=== PATIENT | female | born 1975 ===

== ENCOUNTER 2016-12-01 16:22 | Emergency (ER) | payer MEDICAID ==
--- NOTE | 2016-12-01 17:44 | C.PDOC ---
History Of Present Illness 41 year old female presents to Emergency Department for evaluation of periumbilical pain for the past year, but worse over the last few days. Patient states is "feels like a ball" in that region. Notes taking Tylenol for pain without relief. She states she has had "bouts of pain for months". She was seen by doctor in [place] and told to see specialist but did not follow up . Denies weight loss, constipation, diarrhea, blood in stool, dysuria, hematuria, nausea , vomiting, or fever. Time Seen by Provider: 12/01/16 17:22 Chief Complaint (Nursing): Abdominal Pain History Per: Patient History/Exam Limitations: no limitations Onset/Duration Of Symptoms: Days Current Symptoms Are (Timing): Still Present Location Of Pain/Discomfort: Periumbilical Radiation Of Pain To:: None Quality Of Discomfort: "Pain" Associated Symptoms: denies: Loss Of Appetite, Back Pain, Chest Pain, Constipation, Urinary Symptoms Exacerbating Factors: None Alleviating Factors: None Recent travel outside of the [place]: No Additional History Per: Patient Past Medical History Reviewed: Historical Data, Nursing Documentation, Vital Signs Vital Signs: Last Vital Signs Temp 98.1 F 12/01/16 18:00 Pulse 74 12/01/16 18:00 Resp 18 12/01/16 18:00 BP 120/80 12/01/16 18:00 Pulse Ox 98 12/01/16 18:09 - Medical History PMH: Anemia Family History: States: Unknown Family Hx - Social History Hx Tobacco Use: No Hx Alcohol Use: No Hx Substance Use: No - Immunization History Hx Tetanus Toxoid Vaccination: No Hx Influenza Vaccination: No Hx Pneumococcal Vaccination: No Review Of Systems Except As Marked, All Systems Reviewed And Found Negative. Constitutional: Negative for: Fever, Chills Cardiovascular: Negative for: Chest Pain Respiratory: Negative for: Shortness of Breath Gastrointestinal: Positive for: Abdominal Pain. Negative for: Nausea, Vomiting , Diarrhea, Constipation, Hematochezia Genitourinary: Negative for: Dysuria, Frequency, Hematuria, Vaginal Discharge Musculoskeletal: Negative for: Back Pain Neurological: Negative for: Headache, Dizziness Physical Exam - Physical Exam Appears: Non-toxic, No Acute Distress Skin: Normal Color, Warm, Dry Head: Atraumatic, Normacephalic Eye(s): bilateral: Normal Inspection Oral Mucosa: Moist Neck: Normal ROM, Supple Chest: Symmetrical Cardiovascular: Rhythm Regular, No Murmur Respiratory: Normal Breath Sounds, No Rales, No Rhonchi, No Wheezing Gastrointestinal/Abdominal: Bowel Sounds (active), Soft, Tenderness, No Distention, No Guarding, No Rebound, Hernia (soft minimally tender reducible umbilical hernia) Back: Normal Inspection, No CVA Tenderness Extremity: Normal ROM, No Deformity Neurological/Psych: Oriented x3, Normal Speech Gait: Steady ED Course And Treatment O2 Sat by Pulse Oximetry: 98 (RA) Pulse Ox Interpretation: Normal Medical Decision Making Medical Decision Making: Patient with umbilical hernia, no acute distress. No signs of acute abdomen, no vomiting or other associated complaints. Vital signs stable. Discuss and educate patient on what umbilical hernia is and that she can follow up with general surgery for further evaluation. Patient given list of local general surgeons. Disposition Counseled Patient/Family Regarding: Diagnosis, Need For Followup - Disposition Referrals: Mohit Tony MD [Staff Provider] - Dustin Ledesma MD [Staff Provider] - Disposition: HOME/ ROUTINE Disposition Time: 17:43 Condition: STABLE Additional Instructions: Usted tiene bala hernia umbilical. [place] analgsicos segn sea necesario. Seguimiento con ciruga general para consultar. Lopez un seguimiento con aguilar mdico primario o clnica en 2-5 dewitt para bala evaluacin adicional. Regrese al departamento de emergencia en cualquier momento si los sntomas persisten o empeoran. Instructions: Umbilical Hernia (ED) Forms: [employer] (Uruguayan) Print Language: SIERRA LEONEAN - POA Present On Arrival: None - Clinical Impression Clinical Impression: Umbilical hernia - PA / CORONER TECHNICIAN / Resident Statement MD/DO has reviewed & agrees with the documentation as recorded. - Scribe Statement The provider has reviewed the documentation as recorded by the Ikeibchelle Jasso All medical record entries made by the Scribe were at my direction and personally dictated by me. I have reviewed the chart and agree that the record accurately reflects my personal performance of the history, physical exam, medical decision making, and the department course for this patient. I have also personally directed, reviewed, and agree with the discharge instructions and disposition.
[2016-12-01 18:01] VITALS: BP 120/80; PULSE 74; RESP 18; TEMP 98.1
[2016-12-01 18:04] VITALS: O2SAT 98
== END 2016-12-01 18:01 | disposition home or self-care (01) ==
LOC: C.ER 16:22
DX: K42.9 Umbilical hernia without obstruction or gangrene (principal)

== ENCOUNTER 2017-01-05 09:02 | Day surgery (SDC) | payer MEDICAID ==
[2016-12-26 10:12] VITALS: BMI 45.6
[2017-01-05] MEDS ORDERED: ceFAZolin IV 2 gm in Dextrose 2 GM/50 ML BAG IVPB ONE (09:36)
[2017-01-05] MEDS ORDERED: Midazolam 2 MG/2 ML VIAL ONE (10:27)
[2017-01-05] MEDS ORDERED: Propofol 10 mg/ml Inj (20 ML) ONE ×2 (10:28→11:27)
[2017-01-05] MEDS ORDERED: Lactated Ringer's 1,000 ML IV ONE ×3 (10:47→13:03)
[2017-01-05] MEDS ORDERED: Succinylcholine Chloride 20 mg/ml Syr (5 ml) IV ONE (10:57)
[2017-01-05] MEDS: Bupivacaine-Epi 0.25%-1:200,000 PF Inj ONE ×2 (10:59→11:27)
[2017-01-05] MEDS: Lidocaine 1% Inj (20ml) ONE ×2 (10:59→11:27)
[2017-01-05] MEDS: Bupivacaine HCl 0.25% PF (10 ml) Inj ONE ×4 (10:59→13:08)
[2017-01-05] MEDS ORDERED: Neostigmine Methylsulfate 3mg/3ml Syringe IV ONE (13:09)
[2017-01-05] MEDS ORDERED: HYDROmorphone 0.5 mg/0.5 ml ISec IVP PRN (13:33)
--- NOTE | 2017-01-05 13:38 | PCM.SURG1 ---
Surgeon's Initial Post Op Note - Surgeon's Notes Surgeon: Dr. Ledesma Precipitation Equipment Tender: Dr. Guzman PGY2, Lucy MCKEONA Type of Anesthesia: General Endo Pre-Operative Diagnosis: umbilical hernia Operative Findings: see dictation Post-Operative Diagnosis: umbilical hernia Operation Performed: robot-assisted laparoscopic incisional, supra-umbilical and umbilical hernia repair w/ mesh, lysis of adhesions Specimen/Specimens Removed: umbilical hernia sac and contents Estimated Blood Loss: EBL {In ML}: 10 Blood Products Given: N/A Drains Used: No Drains Post-Op Condition: Good Date of Surgery/Procedure: 01/05/17 Time of Surgery/Procedure: 10:50
[2017-01-05 16:19] VITALS: RESP 16
[2017-01-05 17:27] VITALS: BP 132/75; PULSE 91; TEMP 98.1; O2SAT 95
--- NOTE | 2017-01-06 07:24 | OP ---
PROCEDURE DATE: 01/05/2017 PREOPERATIVE DIAGNOSES: 1. Incisional umbilical hernia status post gastric bypass. 2. Morbid obesity. 3. Possible postoperative adhesion. POSTOPERATIVE DIAGNOSES: 1. Supraumbilical incisional hernia containing omentum. 2. Umbilical hernia containing preperitoneal fat. 3. Infraumbilical incisional hernia containing preperitoneal fat. 4. Morbid obesity. 5. Extensive postoperative adhesion. OPERATIONS DONE: 1. Robotic supraumbilical incisional hernia repair with a mesh incarcerated. 2. Robotic umbilical hernia repair with a mesh. 3. Robotic infraumbilical incisional hernia repair with a mesh, nonincarcerated. 4. Robotic lysis of adhesion. 5. Bilateral laparoscopic TAP block placement. SURGEON: Dustin Ledesma MD ASSISTANTS: STEFANO Ramos and Dari Guzman, PGY-2 resident. TYPE OF ANESTHESIA: General endotracheal tube anesthesia. ESTIMATED BLOOD LOSS: EBL is around 10 mL. DRAINS: None. PATHOLOGY: 1. Supraumbilical incisional hernial sac and content were sent for the pathology. 2. Umbilical hernial sac and content were sent for the pathology. 3. Infraumbilical incisional hernia sac and content were sent for the pathology. COMPLICATIONS: None. DESCRIPTION OF PROCEDURE: On intraoperative step, the patient had supraumbilical incisional hernia containing incarcerated omentum, and the patient also had umbilical hernia containing preperitoneal fat and the patient also had another infraumbilical incisional hernia containing preperitoneal fat, and the patient had extensive postoperative adhesion as well as incarcerated omentum. On intraoperative steps, this is a 41-year-old female who was diagnosed with incisional umbilical hernia, and the patient was brought to the OR after consenting robotic umbilical incisional hernia repair with a mesh and possible open, placed supine on the operating table. After induction of the anesthesia, the abdomen was prepped and draped in the usual sterile fashion. Under laparoscopic guidance, using the Visi-Port, peritoneal cavity was entered, pneumo was created and another two 8 mm robotic ports were placed. The 5-mm ports were changed to 8 mm ports. Robot was brought in. The camera arm as well as arm #1 and arm #2 were docked, and first lysis of adhesion of the incarcerated omentum was done and other peritoneal lysis of adhesion was done, and after that total three defects were identified, one supraumbilical incisional hernia, umbilical hernia as well as the infraumbilical incisional hernia and after that all the hernial defects were repaired with #1 Prolene V-Loc suture in a double layer and after that the large 18 x 12 cm mesh was implanted. After proper implantation of the mesh with a tacker, the bilateral TAP block was given, first on the right side. The 15:15 mL of Marcaine was injected in the upper and lower TAP block site, and after proper TAP block, pneumo was deflated. All the port was taken out under vision. All the specimen was taken out before deflating pneumo, and it was sent over the table for pathology. There was proper hemostasis in each and every part of the procedure. All the port was closed in two layers, subcutaneously with 2-0 Vicryl, skin with 4-0 Monocryl, and dry sterile dressing was applied. The patient was extubated in the OR and sent to the Postanesthesia Care Unit in stable condition. Dustin Ledesma MD
== END 2017-01-05 17:26 | disposition home or self-care (01) ==
LOC: C.SDS 09:02
PROVIDERS: ATTEND Surgery Surgical Critical Care
DX: K42.9 Umbilical hernia without obstruction or gangrene (principal); E66.01 Morbid (severe) obesity due to excess calories
CPT/HCPCS: 49585; 49654; 82948; 88302; J0690; J1100; J1170; J2250; J2405; J2704; J2710; J3010; J7120

== ENCOUNTER 2017-01-06 18:36 | Emergency (ER) | payer MEDICAID ==
[2017-01-06 18:37] VITALS: BMI 45.6
[2017-01-06 20:15] LABS: BASO % 0.3 % (0.0-2.0); EOS % 0.7 % (0.0-4.0); LYMPH # 1.9 K/uL (1.0-4.3); LYMPH % 27.8 % (20.0-40.0); MEAN CELL VOLUME 77.3 fL (81.0-99.0); MEAN CORPUSCULAR HEMOGLOBIN 24.5 pg (27.0-31.0); MEAN CORPUSCULAR HGB CONC 31.7 g/dL (33.0-37.0); MEAN PLATELET VOLUME 7.7 fL (7.2-11.7); MONO # 0.6 K/uL (0.0-0.8); MONO % 9.3 % (0.0-10.0); RED CELL DISTRIBUTION WIDTH 15.7 % (11.5-14.5); WHITE BLOOD COUNT 6.7 K/uL (4.8-10.8)
[2017-01-06 20:27] LABS: RBC URINE 72 /hpf (0-3); URINE BACTERIA MOD (<OCC); URINE BILIRUBIN NEGATIVE (NEGATIVE); URINE BLOOD 3+ (NEGATIVE); URINE COLOR Red (YELLOW); URINE GLUCOSE (UA) NORMAL (Normal); URINE KETONE NEGATIVE (NEGATIVE); URINE LEUKOCYTE ESTERASE TRACE Leu/uL (Negative); URINE PROTEIN 2+ mg/dL (NEGATIVE); URINE UROBILINOGEN NORMAL mg/dL (0.2-1.0); WBC URINE 102 /hpf (0-5)
[2017-01-06 20:32] LABS: ALKALINE PHOSPHATASE 63 U/L (38-126); ALT/SGPT 43 U/L (9-52); AST/SGOT 19 U/L (14-36); BILIRUBIN,TOTAL 0.6 mg/dL (0.2-1.3); BLOOD UREA NITROGEN 12 mg/dL (7-17); CALCIUM 8.7 mg/dl (8.6-10.4); CARBON DIOXIDE 28 mmol/L (22-30); CHLORIDE 100 mmol/L (98-107); GFR AFRICAN-AMERICAN > 60; GLUCOSE,RANDOM 129 mg/dL (65-105); POTASSIUM 3.6 mmol/L (3.6-5.2); SODIUM 138 mmol/L (132-148); TOTAL PROTEIN 8.2 g/dL (6.3-8.3)
--- NOTE | 2017-01-06 21:33 | C.PDOC ---
History Of Present Illness 41 year old female presents to the ED c/o abdominal pain and mild nausea. Patient reports she had hernia surgery yesterday and has not contacted her surgeon for the complaints she has today. Patient denies vomit, fever, bloody stool, dysuria, hematuria, back pain, dizziness. Chief Complaint (Nursing): Abdominal Pain History Per: Patient History/Exam Limitations: no limitations Onset/Duration Of Symptoms: Hrs Current Symptoms Are (Timing): Still Present Context: Other (Recent surgery) Severity: Mild Location Of Pain/Discomfort: Diffuse Radiation Of Pain To:: None Quality Of Discomfort: "Pain" Associated Symptoms: denies: Fever, Nausea, Vomiting, Diarrhea, Urinary Symptoms Alleviating Factors: None Recent travel outside of the [place]: No Additional History Per: Patient Abnormal Vaginal Bleeding: No Past Medical History Reviewed: Historical Data, Nursing Documentation, Vital Signs Vital Signs: Last Vital Signs Temp 98.5 F 01/06/17 21:35 Pulse 60 01/06/17 21:35 Resp 18 01/06/17 21:35 BP 92/64 L 01/06/17 21:35 Pulse Ox 98 01/06/17 21:38 - Medical History PMH: Anemia Denies: Chronic Kidney Disease Surgical History: No Surg Hx Family History: States: Unknown Family Hx - Social History Hx Tobacco Use: No Hx Alcohol Use: No Hx Substance Use: No - Immunization History Hx Tetanus Toxoid Vaccination: No Hx Influenza Vaccination: No Hx Pneumococcal Vaccination: No Review Of Systems Constitutional: Negative for: Fever, Chills Cardiovascular: Negative for: Chest Pain, Palpitations Respiratory: Negative for: Cough, Shortness of Breath Gastrointestinal: Positive for: Abdominal Pain. Negative for: Nausea, Vomiting Musculoskeletal: Negative for: Back Pain Skin: Negative for: Rash Neurological: Negative for: Weakness, Numbness Physical Exam - Physical Exam Appears: Non-toxic, No Acute Distress Skin: Normal Color, Warm, Dry Head: Atraumatic, Normacephalic Nose: No Discharge, No Deformity Oral Mucosa: Moist Neck: Normal ROM, Supple Chest: Symmetrical Cardiovascular: Rhythm Regular, No Murmur Respiratory: Normal Breath Sounds, No Rales, No Rhonchi, No Wheezing Gastrointestinal/Abdominal: Bowel Sounds (Active ), Other (Binder still present STP hernia Sx) Back: No CVA Tenderness Extremity: Normal ROM, No Calf Tenderness, No Deformity, No Swelling Neurological/Psych: Oriented x3, Normal Speech, Normal Cognition Gait: Steady ED Course And Treatment - Laboratory Results Result Diagrams: 01/06/17 20:12 01/06/17 20:12 O2 Sat by Pulse Oximetry: 98 (On RA) Pulse Ox Interpretation: Normal Medical Decision Making Medical Decision Making: Plan : * Blood work ordered * UA ordered * Blood culture collected * Urine culture collected Disposition - Disposition Referrals: Dustin Ledesma MD [Staff Provider] - Disposition: HOME/ ROUTINE Disposition Time: 20:40 Condition: GOOD Additional Instructions: Thank you for letting us take care of you today. The emergency medical care you received today was directed at your acute symptoms. If you were prescribed any medication, please fill it and take as directed. It may take several days for your symptoms to resolve. Return to the Emergency Department if your symptoms worsen, do not improve, or if you have any other problems. Please contact your doctor or call one of the physicians/clinics you have been referred to that are listed on the Patient Visit Information form that is included in your discharge packet. Bring any paperwork you were given at discharge with you along with any medications you are taking to your follow up visit. Our treatment cannot replace ongoing medical care by a primary care provider (PCP) outside of the emergency department. Thank you for allowing the [facility] team to be part of your care today. Follow up with your surgeon as scheduled for re-evaluation and further management. Hilario por dejarnos atenderlo hoy. La atencin mdica de emergencia que recibi hoy estaba dirigida a tatiana sntomas agudos. Si le prescribieron algn medicamento, llnelo y tome segn las indicaciones. Tatiana sntomas pueden tardar varios dewitt en resolverse. Regrese al Departamento de Emergencia si tatiana s ntomas empeoran, no mejoran o si tiene algn otro problema. Comunquese con aguilar mdico o llame a marcel de los mdicos / clnicas a los que leon sido referido que figura en el formulario de Informacin de visita del paciente que se incluye en aguilar paquete de elizabeth. Traiga todos los documentos que recibi al momento del elizabeth junto con los medicamentos que est tomando en aguilar visita de seguimiento. Nuestro tratamiento no puede reemplazar la atencin mdica en curso por parte de un proveedor de atencin primaria (PCP) fuera del departamento de emergencias. Hilario por permitir que el equipo de [facility] sea parte de aguilar cuidado hoy. Lopez un seguimiento con aguilar cirujano segn lo programado para bala reevaluacin y administracin adicional. Prescriptions: Ondansetron ODT [Zofran ODT] 8 mg PO Q6 PRN #20 odt PRN Reason: Nausea/Vomiting Instructions: Abdominal Pain (ED) Forms: Gen Discharge Inst Icelandic Print Language: GERMAN - Clinical Impression Clinical Impression: Abdominal wall pain - Scribe Statement The provider has reviewed the documentation as recorded by the Scribe Tony Jerry All medical record entries made by the Scribe were at my direction and personally dictated by me. I have reviewed the chart and agree that the record accurately reflects my personal performance of the history, physical exam, medical decision making, and the department course for this patient. I have also personally directed, reviewed, and agree with the discharge instructions and disposition.
[2017-01-06 21:35] VITALS: BP 92/64; PULSE 60; RESP 18; TEMP 98.5
[2017-01-06 21:37] VITALS: O2SAT 98
== END 2017-01-06 21:59 | disposition home or self-care (01) ==
LOC: C.ER 18:36
DX: R10.9 Unspecified abdominal pain (principal)

== ENCOUNTER 2017-08-20 12:54 | Emergency (ER) | payer MEDICAID ==
[2017-08-20 12:54] VITALS: BMI 45.6
[2017-08-20] MEDS ORDERED: Sodium Chloride 0.9% 1,000 ML IV ONE (14:35)
[2017-08-20 14:44] LABS: BASO # 0.1 K/uL (0.0-0.2); BASO % 1.3 % (0.0-2.0); EOS # 0.2 K/uL (0.0-0.7); EOS % 4.2 % (0.0-4.0); HEMOGLOBIN 11.1 g/dL (11.0-16.0); LYMPH # 1.8 K/uL (1.0-4.3); LYMPH % 37.2 % (20.0-40.0); MEAN CELL VOLUME 74.9 fL (81.0-99.0); MEAN CORPUSCULAR HEMOGLOBIN 23.8 pg (27.0-31.0); MEAN CORPUSCULAR HGB CONC 31.7 g/dL (33.0-37.0); MEAN PLATELET VOLUME 8.3 fL (7.2-11.7); MONO # 0.5 K/uL (0.0-0.8); MONO % 10.8 % (0.0-10.0); NEUT # 2.2 K/uL (1.8-7.0); NEUT % 46.5 % (50.0-75.0); NRBC % 0.1 % (0.0-2.0); RBC 4.68 Mil/uL (3.80-5.20); RED CELL DISTRIBUTION WIDTH 16.4 % (11.5-14.5); WHITE BLOOD COUNT 4.8 K/uL (4.8-10.8)
[2017-08-20] MEDS ORDERED: Iodixanol 320 MG/ML 100 ML BOTTLE IV ONE (14:53)
[2017-08-20 14:58] LABS: ALB/GLOB RATIO 1.3 (1.0-2.1); ALBUMIN 4.4 g/dL (3.5-5.0); ALT/SGPT 24 U/L (9-52); AST/SGOT 16 U/L (14-36); BLOOD UREA NITROGEN 15 mg/dL (7-17); CALCIUM 9.5 mg/dl (8.6-10.4); GFR AFRICAN-AMERICAN > 60; GFR NON-AFRICAN AMERICAN > 60
[2017-08-20 15:02] LABS: HCG,QUALITATIVE URINE NEGATIVE (NEGATIVE)
[2017-08-20] MEDS ORDERED: Sodium Chloride 0.9% 1,000 ML ONE ×2 (15:14→15:18)
[2017-08-20 15:28] LABS: SQUAMOUS EPITHIAL 3 /hpf (0-5); URINE BACTERIA RARE (<OCC); URINE BILIRUBIN NEGATIVE (NEGATIVE); URINE BLOOD NEGATIVE (NEGATIVE); URINE CLARITY Hazy (Clear); URINE COLOR Yellow (YELLOW); URINE GLUCOSE (UA) NORMAL (Normal); URINE LEUKOCYTE ESTERASE 2+ Leu/uL (Negative); URINE PROTEIN NEGATIVE (NEGATIVE); URINE UROBILINOGEN NORMAL mg/dL (0.2-1.0)
[2017-08-20] MEDS ORDERED: cefTRIAXone IV 1 gm in Dextros 50 ML IVPB STA (16:02)
--- NOTE | 2017-08-20 16:10 | C.PDOC ---
History Of Present Illness 42-year-old female, presents to the emergency department with complaints of right lower quadrant pain, ongoing x2 days, non-radiating, worse with ambulation. Patient notes associated nausea. Denies fever, chills, sore throat, CP, SOB, vomiting, diarrhea, back pain, UTI sx, or any other associated symptoms.Ambulate to Ed for evaluation, not in any apparent distress. Time Seen by Provider: 08/20/17 14:14 Chief Complaint (Nursing): Abdominal Pain History Per: Patient History/Exam Limitations: no limitations Current Symptoms Are (Timing): Still Present Severity: Moderate Location Of Pain/Discomfort: RLQ Past Medical History Reviewed: Historical Data, Nursing Documentation, Vital Signs Vital Signs: Last Vital Signs Temp 98.3 F 08/20/17 13:07 Pulse 97 H 08/20/17 13:07 Resp 18 08/20/17 13:07 BP 126/82 08/20/17 13:07 Pulse Ox 97 08/20/17 16:20 - Medical History PMH: Anemia Denies: Chronic Kidney Disease Family History: States: No Known Family Hx - Social History Hx Tobacco Use: No Hx Alcohol Use: No Hx Substance Use: No - Immunization History Hx Tetanus Toxoid Vaccination: No Hx Influenza Vaccination: No Hx Pneumococcal Vaccination: No Review Of Systems Constitutional: Negative for: Fever, Chills Cardiovascular: Negative for: Chest Pain, Palpitations Respiratory: Negative for: Shortness of Breath Gastrointestinal: Positive for: Nausea, Abdominal Pain. Negative for: Vomiting , Diarrhea, Constipation Musculoskeletal: Negative for: Back Pain Skin: Negative for: Rash Neurological: Negative for: Weakness Physical Exam - Physical Exam Appears: Well, Non-toxic, No Acute Distress Skin: Normal Color, Warm, Dry, No Rash Head: Normacephalic Eye(s): bilateral: PERRL Nose: No Flaring Oral Mucosa: Moist, No Drooling Lips: Normal Appearing Throat: No Erythema Neck: Normal ROM, Trachea Midline, Supple Chest: Symmetrical Cardiovascular: Rhythm Regular, No Murmur, No JVD Respiratory: No Decreased Breath Sounds, No Accessory Muscle Use, No Stridor, No Wheezing Gastrointestinal/Abdominal: Soft, Tenderness (RLQ, mild), No Guarding, No Rebound Back: No CVA Tenderness Extremity: Normal ROM, No Deformity, No Swelling Neurological/Psych: Oriented x3, Normal Speech ED Course And Treatment - Laboratory Results Result Diagrams: 08/20/17 14:37 08/20/17 14:37 Lab Interpretation: Normal Urine POC: Negative O2 Sat by Pulse Oximetry: 97 (RA) Pulse Ox Interpretation: Normal - CT Scan/US CT abd/pelvis Other Rad Studies (CT/US): Radiology Report Reviewed CT/US Interpretation: Creator : Eva Gipson. Dictator : Cowlman : Residential Aide : Nick Saldana MD. Approver2 : Report Date : 08/20/2017 16:08: 00. My Comment : . Date of service: 08/20/2017. PROCEDURE: CT Abdomen and Pelvis with Oral contrast. HISTORY: RLQ pain. COMPARISON: No prior comparison made with prior CT scan brain 12/26/2016. TECHNIQUE: Contiguous axial images of the abdomen and pelvis. . Coronal and Sagittal reformats generated. This CT exam was performed using one or more of the following dose reduction techniques: Automated exposure control, adjustment of the mA and/or kV according to patient size, and/or use of iterative reconstruction technique. Contrast dose: At 100 cc Visipaque 320 contrast material. Radiation dose: Total exam DLP = 1259.41 mGy-cm. FINDINGS: LOWER THORAX: Mild passive/ dependent type atelectasis both posterior lower lung zones. Heart size is borderline/mildly enlarged. No significant pericardial effusion. Tiny hiatal hernia. LIVER: Liver is enlarged measuring over 21 cm in CC dimension. No obvious hepatic mass collection or calcification. . Mild moderate fatty hepatic infiltration. Portal and splenic veins are opacified. GALLBLADDER AND BILE DUCTS: Gallbladder is physiologically distended. No evidence of intraluminal gallbladder calculi. PANCREAS: Unremarkable. No mass. No ductal dilatation. SPLEEN: Re- demonstrated is a small splenule adjacent to the medial aspect main body of the spleen. ADRENALS: No adrenal lesions. KIDNEYS AND URETERS: Unremarkable. No stone or hydronephrosis. Again noted is an exophytic cyst arising from the upper pole right kidney that measures approximately 3.3 x 3.2 cm. BLADDER: Grossly unremarkable. No evidence of intraluminal urinary bladder calculi. REPRODUCTIVE: The interval resolution previously suspected small right ovarian cyst. APPENDIX: Normal-appearing appendix of best seen on axial image number [id number]. No periappendiceal inflammatory changes. BOWEL: Postoperative changes of gastric bypass again noted. PERITONEUM: Unremarkable. No fluid collection. No free air. Previously noted ventral wall hernia has been repaired. Note made of some minor infiltration changes within the subcutaneous tissues left anterolateral lower abdominal wall. LYMPH NODES: Unremarkable. No enlarged lymph nodes. VASCULATURE: Unremarkable. No aortic aneurysm. BONES: No fracture or destructive lesion. OTHER FINDINGS: None. IMPRESSION: Hepatomegaly with fatty infiltration. Status post right ventral wall hernia repair. No evidence of acute appendicitis. Stable postoperative changes of the stomach. Re- demonstrated is a exophytic cyst upper pole right kidney. No evidence of nephrolithiasis. Resolution previously noted small right -sided adnexal cyst. Progress Note: Pt was OBS in ED for 3 hours and reports moderate improvement in sx. On re-eval, pt is afebrile, hemodynamicaly stable. NOn-toxic, tolerate Po well in ED. PuslEOx 97% RA. neck: Supple, (-) JVD. Lungs: CTA B/L, BS equal B /L. CVS: (+)S1S2, reg. Abd: benign, (-) guaridng, (-) rebound. back: (-) CVA tenderness. Blood work review, no acute leukocytosis or left shift. UA (+) WBC. CT abd/pelvis review (-) acute pathology noted. Pt has clinical findings c/w UTI. Pt advised. ref. to f/u with PMD, [employer] in 2-3 days for re-eval. return to ED f any worsening or new changes. Disposition Counseled Patient/Family Regarding: Studies Performed, Diagnosis, Need For Followup, Rx Given - Disposition Referrals: Zachery Irwin [Staff Provider] - Disposition: HOME/ ROUTINE Disposition Time: 16:52 Condition: STABLE Additional Instructions: Encourage fluids take medication as prescribed Follow up with PMD in 2-3 days for re-evaluation. return to ED if any worsening or new changes. Prescriptions: Cefpodoxime [Vantin] 400 mg PO BID #28 tab Instructions: Urinary Tract Infections in Adults Forms: [employer] (Burmese) Print Language: SRI LANKAN - Clinical Impression Clinical Impression: UTI (urinary tract infection) - Scribe Statement The provider has reviewed the documentation as recorded by the Scribe (Gibson Decker) All medical record entries made by the Scribe were at my direction and personally dictated by me. I have reviewed the chart and agree that the record accurately reflects my personal performance of the history, physical exam, medical decision making, and the department course for this patient. I have also personally directed, reviewed, and agree with the discharge instructions and disposition.
[2017-08-20] MEDS ORDERED: cefTRIAXone IV 1 gm in Dextros 50 ML IVPB ONE (16:29)
--- NOTE | 2017-08-20 16:30 | CT ---
Date of service: 08/20/2017 PROCEDURE: CT Abdomen and Pelvis with Oral contrast. HISTORY: RLQ pain COMPARISON: No prior comparison made with prior CT scan brain 12/26/2016. TECHNIQUE: Contiguous axial images of the abdomen and pelvis. . Coronal and Sagittal reformats generated. This CT exam was performed using one or more of the following dose reduction techniques: Automated exposure control, adjustment of the mA and/or kV according to patient size, and/or use of iterative reconstruction technique. Contrast dose: At 100 cc Visipaque 320 contrast material. Radiation dose: Total exam DLP = 1259.41 mGy-cm. FINDINGS: LOWER THORAX: Mild passive/dependent type atelectasis both posterior lower lung zones. Heart size is borderline/mildly enlarged. No significant pericardial effusion. Tiny hiatal hernia. LIVER: Liver is enlarged measuring over 21 cm in CC dimension. No obvious hepatic mass collection or calcification. . Mild moderate fatty hepatic infiltration. Portal and splenic veins are opacified. GALLBLADDER AND BILE DUCTS: Gallbladder is physiologically distended. No evidence of intraluminal gallbladder calculi. PANCREAS: Unremarkable. No mass. No ductal dilatation. SPLEEN: Re- demonstrated is a small splenule adjacent to the medial aspect main body of the spleen ADRENALS: No adrenal lesions. KIDNEYS AND URETERS: Unremarkable. No stone or hydronephrosis. Again noted is an exophytic cyst arising from the upper pole right kidney that measures approximately 3.3 x 3.2 cm. BLADDER: Grossly unremarkable. No evidence of intraluminal urinary bladder calculi REPRODUCTIVE: The interval resolution previously suspected small right ovarian cyst. APPENDIX: Normal-appearing appendix of best seen on axial image number [id number]. No periappendiceal inflammatory changes. BOWEL: Postoperative changes of gastric bypass again noted. PERITONEUM: Unremarkable. No fluid collection. No free air. Previously noted ventral wall hernia has been repaired Note made of some minor infiltration changes within the subcutaneous tissues left anterolateral lower abdominal wall LYMPH NODES: Unremarkable. No enlarged lymph nodes. VASCULATURE: Unremarkable. No aortic aneurysm. BONES: No fracture or destructive lesion. OTHER FINDINGS: None. IMPRESSION: Hepatomegaly with fatty infiltration. Status post right ventral wall hernia repair No evidence of acute appendicitis. Stable postoperative changes of the stomach. Re- demonstrated is a exophytic cyst upper pole right kidney. No evidence of nephrolithiasis. Resolution previously noted small right-sided adnexal cyst.
[2017-08-20 17:31] VITALS: BP 110/72; PULSE 79; RESP 16; TEMP 98.7; O2SAT 98
== END 2017-08-20 17:33 | disposition home or self-care (01) ==
LOC: C.ER 12:54
DX: N39.0 Urinary tract infection, site not specified (principal)
CPT/HCPCS: 74177; 80053; 81001; 84703; 85025; 87086; 96361; 96365; 96375; 99285; J0696; J1885; J2405; J7030; Q9967